=== PATIENT | female | born 1990 | race Hispanic/Latino ===

== ENCOUNTER 2017-01-03 18:07 | Emergency (ER) | payer MEDICAID, OTHER ==
--- NOTE | 2017-01-03 20:55 | Emergency Department Report ---
ED Eye Problem HPI - General Chief complaint: Eye Problems Stated complaint: POSS PINK EYE/RIGHT EYE Time Seen by Provider: 01/03/17 20:41 Source: patient Mode of arrival: Ambulatory Limitations: No Limitations - History of Present Illness Initial comments: PT c/o eye irritation since yesterday. PT states today she started having eye drainage and redness. PT states she does wear contacts and she put her contacts in on . PT states she was just seen at the eye doctor and she is waiting for her glasses to come in. PT states she did not take out her contacts because she does not have another pair and she can not see without correction. PT's visual acuity approx 20/200. PT drove herself to the ED and needs to drive herself home. PT does not have glasses currently. PT denies known fb. chief complaint: eye redness Onset/Timin -: Gradual, days(s) Onset Description: gradual Location: right eye Eye Symptoms: redness, discharge, photophobia Severity scale (0 -10): 3 Consistency: constant Context: contact lens use Treatments Prior to Arrival: removed contact lens (and then put it back in) - Related Data Patient Tetanus UTD: Yes Previous Rx's Medication Instructions Recorded Last Taken Type Ciprofloxacin HCl [Ciloxan OPTH 0.5 inch OD BID #1 oint...g. 01/03/17 Unknown Rx OINT] Allergies Allergy/AdvReac Type Severity Reaction Status Date / Time No Known Allergies Allergy Unverified 04/17/15 14:39 ED Review of Systems ROS: Stated complaint: POSS PINK EYE/RIGHT EYE Other details as noted in HPI Constitutional: denies: fever Eyes: as per HPI, eye pain, eye discharge. denies: vision change ENT: denies: congestion Genitourinary: denies: abnormal menses (states she has implant. denies ) Skin: denies: rash ED Past Medical Hx - Past Medical History Previous Medical History?: No Hx Hypertension: No Hx Heart Attack/AMI: No Hx Congestive Heart Failure: No Hx Diabetes: No Hx Deep Vein Thrombosis: No Hx Renal Disease: No Hx Sickle Cell Disease: No Hx Seizures: No Hx Asthma: No Hx COPD: No Hx HIV: No - Surgical History Past Surgical History?: No - Social History Smoking Status: Current Every Day Smoker Substance Use Type: None - Medications Home Medications: Home Medications Medication Instructions Recorded Confirmed Last Taken Type Ciprofloxacin HCl [Ciloxan OPTH 0.5 inch OD BID #1 oint...g. 01/03/17 Unknown Rx OINT] ED Physical Exam - General Limitations: No Limitations General appearance: alert, in no apparent distress - Head Head exam: Present: atraumatic, normocephalic - Eye Eye exam: Present: PERRL, EOMI, conjunctival injection, other (contact lens visualized ). Absent: nystagmus Pupils: Present: normal accommodation - Expanded Eye Exam Expanded Eyelids: Normal Inspection: Right Pupils: Regular, Round: Bilateral, Reactive: Bilateral Sclera/Conjunctival: Injection: Right, Exudate: Right - ENT ENT exam: Present: normal exam - Neck Neck exam: Present: normal inspection, full ROM - Respiratory Respiratory exam: Absent: respiratory distress, wheezes - Cardiovascular Cardiovascular Exam: Present: regular rate, normal rhythm - Extremities Exam Extremities exam: Present: normal inspection - Back Exam Back exam: Present: normal inspection, full ROM - Neurological Exam Neurological exam: Present: alert, oriented X3 - Psychiatric Psychiatric exam: Present: normal affect, normal mood - Skin Skin exam: Present: warm, dry ED Course Vital Signs 01/03/17 01/03/17 19:50 21:34 Temperature 98.2 F 98.1 F Pulse Rate 68 75 Respiratory 18 16 Rate Blood Pressure 110/64 Blood Pressure 104/74 [Right] O2 Sat by Pulse 100 98 Oximetry - Reevaluation(s) Reevaluation #1: 01/03/17 20:58 PT states when she has an eye exam, she can not see the first line clearly. PT offered wood's lamp exam, however, pt needing piledriver carpenter at bedside. PT states she can call her eye doctor tomorrow. PT advised to fill her RX tonight and to remove her contact lens and not put it back in her eye. PT verbalizes understanding. - Pulse Oximetry Interpretation Digit-Finger Initial Pulse Oximetry Readin Actions Taken: none ED Medical Decision Making - Differential Diagnosis conjuntivitis, keratitis, abrasion Critical Care Time: No Critical care attestation.: If time is entered above; I have spent that time in minutes in the direct care of this critically ill patient, excluding procedure time. ED Disposition Clinical Impression: Conjunctivitis Qualifiers: Conjunctivitis type: acute Acute conjunctivitis type: unspecified Laterality: right Qualified Code(s): H10.31 - Unspecified acute conjunctivitis, right eye Disposition: DISCHARGED TO HOME OR SELFCARE Is pt being admited?: No Does the pt Need Aspirin: No Condition: Stable Instructions: Conjunctivitis (ED), Keratitis (ED) Additional Instructions: Tonight when you get home, take out your R contact and throw it away. Find a visually competent piledriver carpenter to take you to your eye doctor Call tomorrow for appointment Return to the ED if worsening Prescriptions: Ciprofloxacin HCl [Ciloxan OPTH OINT] 0.5 inch OD BID #1 oint...g. Referrals: PRIMARY CARE, [Primary Care Provider] - 3-5 Days Forms: Work/School Release Form(ED) Time of Disposition: 21:05
[2017-01-03 21:36] VITALS: BP 104/74
== END 2017-01-03 21:40 | disposition home or self-care (01) ==
LOC: ED 18:07
DX: H10.31 Unspecified acute conjunctivitis, right eye (principal); F17.200 Nicotine dependence, unspecified, uncomplicated
CPT/HCPCS: 99282